=== PATIENT | male | born 1965 | race Caucasian/White ===

== ENCOUNTER 2020-08-05 19:40 | Emergency (ER) | payer MEDICAID ==
[~2020-08-05] VITALS: Ht 165.1 cm; Wt 112.5 kg
[2020-08-05 19:47] VITALS: BP 138/97
--- NOTE | 2020-08-05 20:15 | NUR ---
PT AMBULATORY TO BED #9
--- NOTE | 2020-08-05 20:22 | NUR ---
see complete assessment.
--- NOTE | 2020-08-05 20:26 | NUR ---
Dr. Steiner examining patient.
--- NOTE | 2020-08-05 20:38 | NUR ---
XR at bedside.
--- NOTE | 2020-08-05 21:18 | NUR ---
Ultrasound at bedside.
[2020-08-05] MEDS ORDERED: KETOROLAC 30 MG/ML VIAL IM ONE (22:25)
[2020-08-05] MEDS ORDERED: NAPR-54 PO (22:29)
[2020-08-05 22:42] VITALS: BP 142/79
--- NOTE | 2020-08-05 22:42 | NUR ---
d/c with [facility]. d/c education given. opportunity to ask questions given and answered. rx of naprosyn given.
== END 2020-08-05 22:42 | disposition home or self-care (01) ==
LOC: MED 19:40
DX: M13.861 Other specified arthritis, right knee (principal); E11.9 Type 2 diabetes mellitus without complications; Z79.899 Other long term (current) drug therapy
CPT/HCPCS: 73562; 93971; 96372; 99284; J1885